=== PATIENT | female | born 1995 | race Caucasian/White ===

== ENCOUNTER 2018-05-27 15:29 | Inpatient (IN) | payer BC ==
[~2018-05-27] VITALS: Ht 167.6 cm; Wt 102.7 kg
[2018-06-10] VITALS (54 sets, daily range): BP systolic 109–158; BP diastolic 51–92; PULSE 71–136; TEMP 97.8–99
[2018-06-10] MEDS ORDERED: PRENATAL1 TA7 PO (07:46)
[2018-06-10 08:36] LABS: BASO % 0.4 % (0.0-2.0); EOS # 0.1 (0.0-0.7); EOS % 1.1 % (0-4.0); GRAN # 4.9 (1.4-6.5); HEMOGLOBIN 12.4 g/dl (12.5-16.0); LYMPH # 1.3 (1.2-3.4); LYMPH % 18.5 % (20.0-51.0); MEAN CELL VOLUME 93 fl (80.0-100.0); MEAN CORPUSCULAR HEMOGLOBIN 31 pg (27.0-31.0); MEAN CORPUSCULAR HGB CONC 34 g/dl (33.0-37.0); MEAN PLATELET VOLUME 10.3 fl (7.4-10.4); MONO # 0.6 (0.1-0.6); MONO % 8.6 % (1.7-9.3); PLATELET COUNT 200 K/mm3 (130-400); RED BLOOD COUNT 3.97 M/mm3 (4.10-5.30); REDCELL DISTRIBUTION WIDTH-CV 12.7 % (11.5-14.5)
[2018-06-10 08:37] LABS: HEMATOCRIT 36.9 % (37.0-47.0)
[2018-06-11 03:29] VITALS: BP 112/62; PULSE 90; TEMP 98.1
[2018-06-11 03:35] VITALS: BP 112/62; PULSE 90; TEMP 98.1
[2018-06-11 06:49] LABS: BASO % 0.3 % (0.0-2.0); EOS # 0.1 (0.0-0.7); EOS % 0.6 % (0-4.0); GRAN # 8.7 (1.4-6.5); GRAN % 77.8 % (42.2-75.2); LYMPH # 1.5 (1.2-3.4); LYMPH % 13.2 % (20.0-51.0); MEAN CELL VOLUME 92 fl (80.0-100.0); MEAN CORPUSCULAR HGB CONC 34 g/dl (33.0-37.0); MEAN PLATELET VOLUME 10.3 fl (7.4-10.4); MONO # 0.8 (0.1-0.6); MONO % 7.4 % (1.7-9.3); PLATELET COUNT 152 K/mm3 (130-400); RED BLOOD COUNT 2.99 M/mm3 (4.10-5.30); REDCELL DISTRIBUTION WIDTH-CV 12.8 % (11.5-14.5)
[2018-06-11 06:50] VITALS: BP 124/54; PULSE 99; TEMP 97.8
[2018-06-11 07:03] LABS: HEMATOCRIT 27.5 % (37.0-47.0); HEMOGLOBIN 9.4 g/dl (12.5-16.0); MEAN CORPUSCULAR HEMOGLOBIN 31 pg (27.0-31.0)
[2018-06-11 10:40] VITALS: BP 106/60; PULSE 104; TEMP 97.8
[2018-06-11 16:15] VITALS: BP 120/61; PULSE 95; TEMP 98
[2018-06-11 22:02] VITALS: BP 118/54; PULSE 102; TEMP 97.8
[2018-06-12 07:15] VITALS: BP 118/58; PULSE 94; TEMP 98.3
[2018-06-12] MEDS ORDERED: IBU600 MG PO (10:00)
[2018-06-12] MEDS ORDERED: PERCOCET 325 MG1 TA2 PO (10:00)
== END 2018-06-12 10:45 | disposition home or self-care (01) | DRG 775 ==
LOC: EDSTATUS 06-04 08:27 → LDRO 06-04 15:27 → LDR 06-10 06:59 → OB 06-10 22:45
PROVIDERS: Obstetrics & Gynecology
PROC: 10D07Z6 Extraction of Products of Conception, Vacuum, Via Natural or Artificial Opening (ICD-10-PCS; principal; 2018-06-10)
PROC: 0DQR0ZZ Repair Anal Sphincter, Open Approach (ICD-10-PCS; 2018-06-10)
PROC: 0UQGXZZ Repair Vagina, External Approach (ICD-10-PCS; 2018-06-10)
PROC: 3E033VJ Introduction of Other Hormone into Peripheral Vein, Percutaneous Approach (ICD-10-PCS; 2018-06-10)
PROC: 10907ZC Drainage of Amniotic Fluid, Therapeutic from Products of Conception, Via Natural or Artificial Opening (ICD-10-PCS; 2018-06-10)
DX: O48.0 Post-term pregnancy (principal); O70.20 Third degree perineal laceration during delivery, unspecified; O75.81 Maternal exhaustion complicating labor and delivery; Z3A.40 40 weeks gestation of pregnancy; Z37.0 Single live birth
CPT/HCPCS: J2210; J2590; J2791; J7120